=== PATIENT | male | born 2000 | race Caucasian/White ===

== ENCOUNTER 2020-11-25 02:55 | Emergency (ER) | payer BC, OTHER ==
[2020-11-25] MEDS ORDERED: LIDOCAINE 1% INJ 20 ML 20 ML VIAL INJ ONE (03:15)
[2020-11-25] MEDS ORDERED: L.E.T. SOLUTION 3 ML SYR TOP ONE (03:15)
[2020-11-25] MEDS ORDERED: TETANUS,DIPTH,PERTUSS P/F (BOOSTRIX) 0.5 ML VIAL IM ONE (03:15)
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
[2020-11-25 05:16] VITALS: BP 138/89
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
== END 2020-11-25 05:20 | disposition home or self-care (01) ==
LOC: ER 02:57
DX: S02.5XXA Fracture of tooth (traumatic), initial encounter for closed fracture (principal); S01.111A Laceration without foreign body of right eyelid and periocular area, initial encounter; S01.81XA Laceration without foreign body of other part of head, initial encounter; S06.9X9A Unspecified intracranial injury with loss of consciousness of unspecified duration, initial encounter; F17.210 Nicotine dependence, cigarettes, uncomplicated; Z23 Encounter for immunization; Y04.2XXA Assault by strike against or bumped into by another person, initial encounter
CPT/HCPCS: 70450; 90715